=== PATIENT | male | born 1995 | race African-American/Black ===

== ENCOUNTER 2017-11-15 00:50 | Emergency (ER) | payer OTHER ==
[2017-11-15 01:06] LABS: BILIRUBIN,URINE SMALL (NEG); CLARITY,URINE TURBID; COLOR,URINE AMBER; GLUCOSE,URINE NEGATIVE (NEG); NITRITE,URINE NEGATIVE (NEG); PROTEIN,URINE 30 mg/dL (NEG-TRACE)
[2017-11-15 01:10] LABS: BACTERIA,URINE 0 /HPF (0-FEW); RBC,URINE RARE /HPF (0-2); WBC,URINE 20-40 /HPF (0-4)
[2017-11-15] MEDS: AZITHROMYCIN 250 MG TABLET. PO (01:36)
[2017-11-15] MEDS: cefTRIAXone IM 250 MG VIAL IM (01:36)
[2017-11-15] MEDS ORDERED: diphenhydrAMINE HCL 25 MG CAPSULE PO ×2 (01:55→02:15)
[2017-11-15] MEDS ORDERED: ONDANSETRON ODT 4 MG TAB.RAPDIS. (01:55)
[2017-11-15] MEDS: ONDANSETRON ODT 4 MG TAB.RAPDIS. PO (02:04)
== END 2017-11-15 02:30 | disposition home or self-care (01) ==
LOC: ER 00:50
DX: N30.00 Acute cystitis without hematuria (principal); J45.909 Unspecified asthma, uncomplicated; F12.10 Cannabis abuse, uncomplicated
CPT/HCPCS: 81001; 87086; 87491; 87591; 96372; 99284-25; J0696; Q0144; Q0162